=== PATIENT | male | born 1960 | race Caucasian/White ===

== ENCOUNTER 2017-03-10 10:28 | Emergency (ER) | payer BC ==
[~2017-03-10] VITALS: Ht 172.7 cm; Wt 100.0 kg
[2017-03-10 10:38] VITALS: BP 138/90
== END 2017-03-10 19:07 | disposition left against medical advice (07) ==
LOC: ER 14:05
DX: R04.0 Epistaxis (principal); Z90.49 Acquired absence of other specified parts of digestive tract

== ENCOUNTER 2017-03-12 12:09 | Emergency (ER) | payer BC, OTHER ==
[~2017-03-12] VITALS: Ht 172.7 cm; Wt 100.0 kg
[2017-03-12] MEDS ORDERED: SILVER NITRATE APPLICATOR STICK TOP ONE (19:15)
[2017-03-12 19:24] LABS: BASOPHILS % 0.7 % (0.0-2.0); EOSINOPHILS % 0.5 % (0.0-5.0); HEMATOCRIT. 39.6 % (42.0-52.0); HEMOGLOBIN. 13.5 g/dL (14.0-18.0); LYMPHOCYTES % 40.6 % (20.0-50.0); MEAN CORPUSCULAR HEMOGLOBIN 31.2 pg (28.0-32.0); MEAN CORPUSCULAR HGB CONC 34.1 g/dL (31.0-37.0); MEAN CORPUSCULAR VOLUME 91.4 fL (80.0-94.0); MEAN PLATELET VOLUME 9.1 fl (7.4-10.4); MONOCYTES % 9.4 % (2.0-8.0); NEUTROPHILS % 48.8 % (40.0-76.0); PLATELET 182 x1000/uL (130-400); RED BLOOD CELL COUNT 4.33 mill/uL (4.7-6.1); WHITE BLOOD COUNT 7.5 x1000/uL (4.5-11.0)
[2017-03-12 19:44] LABS: INR 1.2; PARTIAL THROMBOPLASTIN TIME 27.7 sec (24.0-34.0)
[2017-03-12 22:45] VITALS: BP 135/84
== END 2017-03-12 22:51 | disposition home or self-care (01) ==
LOC: ER 18:47
DX: R04.0 Epistaxis (principal); Z90.49 Acquired absence of other specified parts of digestive tract
CPT/HCPCS: 36415; 85025; 85610; 85730; 99284; Z7610